=== PATIENT | male | born 1980 | race Caucasian/White ===

== ENCOUNTER → 2018-12-17 10:43 | Outpatient (CLI) | payer BC, SELFPAY ==
[2016-01-05 16:15] VITALS: BMI 40.7
[2018-12-17 13:14] LABS: Vitamin D,25 Hydroxy 16.6 ng/mL (29.95-100.01)
[2018-12-17 13:19] LABS: ALB/GLOB Ratio 1.1 RATIO (0.9-2.4); AST(SGOT) 33 U/L (15-37); Alanine Aminotransfer ALT/SGPT 73 U/L (16-61); Albumin, Serum 3.6 g/dL (3.2-5.0); Alkaline Phosphatase 51 U/L (45-117); Anion Gap 10 (5-15); BUN 14 mg/dL (7-18); BUN/Creat Ratio 16.1 RATIO (10-20); Calcium,Total 8.6 mg/dL (8.5-10.1); Chloride 105 mmol/L (98-107); Cholesterol 235 mg/dL (200); Creatinine, Serum 0.87 mg/dL (0.70-1.30); EST Glomerular Filtration Rate 103 mL/min (>60); Est Glom Filt Rate - Afr Amer 125 mL/min (>60); Globulin 3.4 g/dL (2.2-4.2); Glucose 90 mg/dL (74-106); High Density Lipoprotein 48 mg/dL; Potassium 4.3 mmol/L (3.5-5.1); Sodium Level 140 mmol/L (136-145); Triglycerides 141 mg/dL; Very Low Density Lipoprotein 28 mg/dL (5-40)
== END ==
PROVIDERS: Family Provider Family Medicine; PCP Family Medicine; Visit Provider Family Medicine
DX: E55.9 Vitamin D deficiency, unspecified (principal); R73.01 Impaired fasting glucose
CPT/HCPCS: 36415; 80053; 80061; 82306

== ENCOUNTER → 2020-02-25 08:02 | Outpatient (CLI) | payer BC, SELFPAY ==
[2016-01-05 16:15] VITALS: BMI 40.7
[2020-02-25 09:21] LABS: ALB/GLOB Ratio 0.9 RATIO (0.9-2.4); AST(SGOT) 40 U/L (15-37); Alanine Aminotransfer ALT/SGPT 71 U/L (16-61); Albumin, Serum 3.6 g/dL (3.2-5.0); Alkaline Phosphatase 54 U/L (45-117); Anion Gap 8 (5-15); BUN 22 mg/dL (7-18); BUN/Creat Ratio 22.2 RATIO (10-20); Calcium,Total 9.2 mg/dL (8.5-10.1); Chloride 108 mmol/L (98-107); Cholesterol 227 mg/dL (200); Creatinine, Serum 0.99 mg/dL (0.70-1.30); EST Glomerular Filtration Rate 88 mL/min (>60); Est Glom Filt Rate - Afr Amer 107 mL/min (>60); Globulin 3.9 g/dL (2.2-4.2); Glucose 115 mg/dL (74-106); High Density Lipoprotein 34 mg/dL; Protein, Total 7.5 g/dL (6.4-8.2); Sodium Level 142 mmol/L (136-145); Triglycerides 219 mg/dL; Very Low Density Lipoprotein 44 mg/dL (5-40)
[2020-02-27 08:52] LABS: Vitamin D,25 Hydroxy 23.9 ng/mL
== END ==
PROVIDERS: PCP Family Medicine; Referring Provider Family Medicine; Visit Provider Family Medicine
DX: E55.9 Vitamin D deficiency, unspecified (principal); R73.01 Impaired fasting glucose; R53.83 Other fatigue
CPT/HCPCS: 36415; 80053; 80061; 82306; 84403

== ENCOUNTER → 2020-05-21 15:50 | Outpatient (CLI) | payer BC, SELFPAY ==
[2016-01-05 16:15] VITALS: BMI 40.7
[2020-05-21 17:40] LABS: Anion Gap 5 (5-15); BUN 24 mg/dL (7-18); BUN/Creat Ratio 24.2 RATIO (10-20); Calcium,Total 9.4 mg/dL (8.5-10.1); Chloride 106 mmol/L (98-107); Creatinine, Serum 0.99 mg/dL (0.70-1.30); EST Glomerular Filtration Rate 88 mL/min (>60); Est Glom Filt Rate - Afr Amer 106 mL/min (>60); Glucose 107 mg/dL (74-106); Potassium 4.2 mmol/L (3.5-5.1); Sodium Level 138 mmol/L (136-145)
[2020-05-23 14:05] LABS: Vitamin B12 446 pg/mL (211-911); Vitamin D,25 Hydroxy 26.1 ng/mL
[2020-05-26 12:07] LABS: Testosterone, Free 4.61 ng/dL (5.00-21.00)
[2020-05-27 04:47] LABS: Testosterone, % Free 2.44 % (1.50-4.20); Testosterone, Total 189 ng/dL (264-916)
== END ==
PROVIDERS: PCP Family Medicine; Referring Provider Family Medicine; Visit Provider Family Medicine
DX: Z00.00 Encounter for general adult medical examination without abnormal findings (principal); E55.9 Vitamin D deficiency, unspecified; R53.83 Other fatigue; R73.01 Impaired fasting glucose
CPT/HCPCS: 36415; 80048; 82306; 82533; 82607; 84402; 84403

== ENCOUNTER → 2020-06-22 13:47 | Outpatient (CLI) | payer BC, SELFPAY ==
[2020-07-01 13:12] LABS: Testosterone Free 5.3 pg/mL (6.8-21.5)
== END ==
PROVIDERS: PCP Family Medicine; Referring Provider Family Medicine; Visit Provider Family Medicine
DX: R79.89 Other specified abnormal findings of blood chemistry (principal)
CPT/HCPCS: 36415; 84402; 84403

== ENCOUNTER → 2020-07-26 15:06 | Outpatient (CLI) | payer BC, SELFPAY ==
[2020-08-01 14:08] LABS: Testosterone, Free 27.15 ng/dL (5.00-21.00)
[2020-08-01 14:23] LABS: Testosterone, Total 554 ng/dL (264-916)
== END ==
PROVIDERS: PCP Family Medicine; Referring Provider Family Medicine; Visit Provider Family Medicine
DX: R79.89 Other specified abnormal findings of blood chemistry (principal)
CPT/HCPCS: 36415; 84402; 84403

== ENCOUNTER → 2020-09-21 09:51 | Outpatient (CLI) | payer BC, SELFPAY ==
[2016-01-05 16:15] VITALS: BMI 40.7
[2020-09-21 13:54] LABS: AST(SGOT) 61 U/L (15-37); Alanine Aminotransfer ALT/SGPT 81 U/L (16-61); Albumin, Serum 3.7 g/dL (3.2-5.0); Alkaline Phosphatase 60 U/L (45-117); BUN 16 mg/dL (7-18); Calcium,Total 9.2 mg/dL (8.5-10.1); Cholesterol 232 mg/dL (200); Creatinine, Serum 0.94 mg/dL (0.70-1.30); EST Glomerular Filtration Rate 93 mL/min (>60); Est Glom Filt Rate - Afr Amer 113 mL/min (>60); Globulin 3.6 g/dL (2.2-4.2); Glucose 101 mg/dL (74-106); Protein, Total 7.3 g/dL (6.4-8.2); Triglycerides 128 mg/dL
[2020-09-21 13:55] LABS: Anion Gap 6 (5-15); Chloride 105 mmol/L (98-107); High Density Lipoprotein 38 mg/dL; PSA,Total - Annual Screen 0.69 ng/mL (0.00-4.00); Potassium 4.5 mmol/L (3.5-5.1); Sodium Level 139 mmol/L (136-145); Very Low Density Lipoprotein 26 mg/dL (5-40)
== END ==
PROVIDERS: PCP Family Medicine; Visit Provider Family Medicine
DX: R79.89 Other specified abnormal findings of blood chemistry (principal)
CPT/HCPCS: 36415; 80053; 80061; 84153; 84403; G0103

== ENCOUNTER → 2020-11-15 09:02 | Outpatient (CLI) | payer BC, SELFPAY ==
[2016-01-05 16:15] VITALS: BMI 40.7
== END ==
PROVIDERS: PCP Family Medicine; Referring Provider Family Medicine; Visit Provider Family Medicine
DX: R79.89 Other specified abnormal findings of blood chemistry (principal)
CPT/HCPCS: 36415; 84403

== ENCOUNTER → 2021-05-22 10:54 | Outpatient (CLI) | payer BC, SELFPAY ==
[2016-01-05 16:15] VITALS: BMI 40.7
== END ==
PROVIDERS: PCP Family Medicine; Visit Provider Family Medicine
DX: Z00.00 Encounter for general adult medical examination without abnormal findings (principal)

== ENCOUNTER → 2021-08-03 09:32 | Outpatient (CLI) | payer BC, SELFPAY ==
[2021-08-03 10:25] LABS: ALB/GLOB Ratio 0.8 RATIO (0.9-2.4); AST(SGOT) 81 U/L (15-37); Alanine Aminotransfer ALT/SGPT 136 U/L (16-61); Albumin, Serum 3.3 g/dL (3.2-5.0); Alkaline Phosphatase 64 U/L (45-117); Anion Gap 8 (5-15); BUN 17 mg/dL (7-18); BUN/Creat Ratio 18.8 RATIO (10-20); Calcium,Total 8.9 mg/dL (8.5-10.1); Chloride 104 mmol/L (98-107); Cholesterol 203 mg/dL (200); EST Glomerular Filtration Rate 97 mL/min (>60); Est Glom Filt Rate - Afr Amer 118 mL/min (>60); Globulin 4.4 g/dL (2.2-4.2); Glucose 122 mg/dL (74-106); High Density Lipoprotein 33 mg/dL; Potassium 4.4 mmol/L (3.5-5.1); Protein, Total 7.7 g/dL (6.4-8.2); Sodium Level 139 mmol/L (136-145); Triglycerides 194 mg/dL; Very Low Density Lipoprotein 39 mg/dL (5-40)
== END ==
PROVIDERS: PCP Family Medicine; Referring Provider Family Medicine; Visit Provider Family Medicine
DX: E66.01 Morbid (severe) obesity due to excess calories (principal); E55.9 Vitamin D deficiency, unspecified; R79.89 Other specified abnormal findings of blood chemistry
CPT/HCPCS: 36415; 80053; 80061; 82306; 84403

== ENCOUNTER → 2022-04-30 | Outpatient (CLI) | payer BC, SELFPAY ==
[2022-04-30 10:06] LABS: AST(SGOT) 28 U/L (15-37); Alanine Aminotransfer ALT/SGPT 57 U/L (16-61); Albumin, Serum 3.7 g/dL (3.2-5.0); Alkaline Phosphatase 58 U/L (45-117); Anion Gap 6 (5-15); BUN 22 mg/dL (7-18); BUN/Creat Ratio 23.2 RATIO (10-20); Calcium,Total 9.3 mg/dL (8.5-10.1); Chloride 105 mmol/L (98-107); Cholesterol 254 mg/dL (200); Creatinine, Serum 0.95 mg/dL (0.70-1.30); EST Glomerular Filtration Rate 92 mL/min (>60); Est Glom Filt Rate - Afr Amer 111 mL/min (>60); Globulin 3.8 g/dL (2.2-4.2); Glucose 131 mg/dL (74-106); High Density Lipoprotein 47 mg/dL; Potassium 4.3 mmol/L (3.5-5.1); Protein, Total 7.5 g/dL (6.4-8.2); Sodium Level 139 mmol/L (136-145); Triglycerides 140 mg/dL; Very Low Density Lipoprotein 28 mg/dL (5-40)
== END | disposition home or self-care (01) ==
LOC: MFPLAB 09:09
PROVIDERS: PCP Family Medicine; Visit Provider Family Medicine
DX: E11.9 Type 2 diabetes mellitus without complications (principal); R79.89 Other specified abnormal findings of blood chemistry
CPT/HCPCS: 36415; 80053; 80061; 84403

== ENCOUNTER → 2022-09-08 | Outpatient (CLI) | payer OTHER, SELFPAY ==
[2022-09-08 11:07] LABS: Vitamin D,25 Hydroxy 35.8 ng/mL
[2022-09-08 11:12] LABS: ALB/GLOB Ratio 0.9 RATIO (0.9-2.4); AST(SGOT) 25 U/L (15-37); Alanine Aminotransfer ALT/SGPT 68 U/L (16-61); Albumin, Serum 3.6 g/dL (3.2-5.0); Alkaline Phosphatase 64 U/L (45-117); Anion Gap 7 (5-15); BUN 18 mg/dL (7-18); BUN/Creat Ratio 18.6 RATIO (10-20); Calcium,Total 9.1 mg/dL (8.5-10.1); Chloride 106 mmol/L (98-107); Cholesterol 173 mg/dL (200); Creatinine, Serum 0.97 mg/dL (0.70-1.30); EST Glomerular Filtration Rate 90 mL/min (>60); Est Glom Filt Rate - Afr Amer 109 mL/min (>60); Glucose 113 mg/dL (74-106); High Density Lipoprotein 54 mg/dL; Potassium 4.3 mmol/L (3.5-5.1); Protein, Total 7.6 g/dL (6.4-8.2); Sodium Level 139 mmol/L (136-145); Thyroid Stim Hormone (TSH) 1.24 uIU/mL (0.358-3.74); Triglycerides 125 mg/dL; Very Low Density Lipoprotein 25 mg/dL (5-40)
== END | disposition home or self-care (01) ==
LOC: LAB 09:24
PROVIDERS: PCP Family Medicine; Referring Provider Family Medicine; Visit Provider Family Medicine
DX: E55.9 Vitamin D deficiency, unspecified (principal); E11.9 Type 2 diabetes mellitus without complications
CPT/HCPCS: 36415; 80053; 80061; 82306; 84403; 84443

== ENCOUNTER → 2024-08-20 | Outpatient (CLI) | payer OTHER, SELFPAY ==
[2024-08-20 10:04] LABS: ALB/GLOB Ratio 0.9 RATIO (0.9-2.4); AST(SGOT) 47 U/L (15-37); Alanine Aminotransfer ALT/SGPT 71 U/L (16-61); Albumin, Serum 3.6 g/dL (3.2-5.0); Alkaline Phosphatase 66 U/L (45-117); Anion Gap 5 (5-15); BUN 22 mg/dL (7-18); BUN/Creat Ratio 21.8 RATIO (10-20); Calcium,Total 9.4 mg/dL (8.5-10.1); Chloride 108 mmol/L (98-107); Cholesterol 160 mg/dL (200); Creatinine, Serum 1.01 mg/dL (0.70-1.30); EST Glomerular Filtration Rate 84 mL/min (>60); Est Glom Filt Rate - Afr Amer 102 mL/min (>60); Glucose 133 mg/dL (74-106); High Density Lipoprotein 43 mg/dL; Potassium 4.6 mmol/L (3.5-5.1); Protein, Total 7.6 g/dL (6.4-8.2); Sodium Level 140 mmol/L (136-145); Triglycerides 139 mg/dL; Very Low Density Lipoprotein 28 mg/dL (5-40)
[2024-08-22 10:10] LABS: Vitamin D,25 Hydroxy 36.6 ng/mL
== END | disposition home or self-care (01) ==
LOC: LAB 09:04
PROVIDERS: PCP Family Medicine; Referring Provider Family Medicine; Visit Provider Family Medicine
DX: E11.9 Type 2 diabetes mellitus without complications (principal); E55.9 Vitamin D deficiency, unspecified
CPT/HCPCS: 36415; 80053; 80061; 82306; 84403; 84443

== ENCOUNTER → 2025-08-19 | Outpatient (CLI) | payer BC, SELFPAY ==
--- OUTSIDE RECORDS SUMMARY | 2025-08-19 07:00 | XMS RPT_ITS | CCD ---
Author Organization [facility] Inform ion Partnership [facility] Care Team Providers Care Hospice Manager Name Role Phone Gurmeet Benson Referring Unavailable Gurmeet Benson Attending Unavailable Gurmeet Benson Primary Care Unavailable Medications Current Medications Medication Drug Class(es) Dates Sig (Normalized) Sig (Original) ergocalciferol 1.25 mg oral capsule (2 sources) Provitamin D2 Compound Start: 01-05-2016 take 1 capsule by mouth every week Ergocalciferol (Vitamin D2) (Vitamin D) 50,000 UNIT capsule Active 75741 UNIT PO Q7D January 05, 2016 12:00am Problems Problem Classification Problem Date Documented Da te Episodic/Chronic Diabetes mellitus without complication (1 source) Type 2 diabetes mellitus without complications; Translations: [Type 2 diabetes mellitus without complications] Onset: 09-12-2024 Chronic Results Test Name Value Interpretation Reference Range Facility Testosterone, Serum Totalon 08-22-2024 Testosterone [Mass/Vol] 191.53 ng/dL Normal [facility] Comment on above: Order Comment: Order Date: 08/15/24 Order Info: [id number] - VITD25 Order Info: [id number] - TIERRA Result Comment: CENT RAL 90% REFERENCE RANGES MALE AGE <50 197.44 - 669.58 ng/dL MALE AGE > or = 50 187.72 - 684.19 ng/dL FEMALE AGE <50 8.38 - 35.01 ng/dL FEMALE AGE > or = 50 <7.00 - 35.92 ng/dL Effective as of 05/28/21 Performed By: #### L 500.4050, L509.3000, L501.9520, L500.4100 #### [facility] [address] [place], [address] Vitamin D,25 Hydroxyon 08-22 Vitamin D 25-OH 36.6 ng/mL Normal [facility] Comment on above: Order Comment: Order Date: 08/15/24 Order Info: [id number] - VITD25 Order Info: [id number] - TIERRA Result Comment: Linda min D 25(OH) Status Range Deficiency <20 ng/mL (50nmol/L) Insufficiency 20 - 30 ng/mL (50 - 75 nmol/L) Sufficiency 30 - 100 ng/mL (75 - 250 nmol/L) Toxicity >100 ng/mL (>250 nmol/L) Performed By: #### L 506.1000 #### [facility] [address] [place], [address] Comprehensive Metabolic Prof ilon 08-20-2024 Albumin [Mass/Vol] 3.6 g/dL Normal 3.2-5.0 [facility] Comment on above: Order Comment: Order Date: 08/15/24 Order Info: [id number] - CMP Order Info: [id number] - LIPID Order Info: [id number] - TSH Performed By: #### L 500.4050, L509.3000, L501.9520, L500.4100 #### [facility] [address] [place], [address] Albumin/Globulin [Mass ratio] 0.9 {ratio} Normal 0.9-2.4 [facility] Comment on above: Order Comment: Order Date: 08/15/24 Order Info: [id number] - CMP Order Info: [id number] - LIPID Order Info: [id number] - TSH Performed By: #### L 500.4050, L509.3000, L501.9520, L500.4100 #### [facility] [address] [place], [address] ALK P 66 U/L Normal 45-117 [facility] Comment on above: Order Comment: Order Date: 08/15/24 Order Info: [id number] - CMP Order Info: [id number] - LIPID Order Info: [id number] - TSH Performed By: #### L 500.4050, L509.3000, L501.9520, L500.4100 #### [facility] [address] [place], [address] ALT [Catalytic activity/Vol] 71 U/L High 16-61 [facility] Comment on above: Order Comment: Order Date: 08/15/24 Order Info: [id number] - CMP Order Info: [id number] - LIPID Order Info: 3 - TSH Performed By: #### L 500.4050, L509.3000, L501.9520, L500.4100 #### [facility] [address] [place], [address] AST [Catalytic activity/Vol] 47 U/L High 15-37 [facility] Comment on above: Order Comment: Order Date: 08/15/24 Order Info: [id number]- - CMP Order Info: - LIPID Order Info: [id number] - TSH Performed By: #### L 500.4050, L509.3000, L501.9520, L500.4100 #### [facility] [address] [place], [address] Bilirubin [Mass/Vol] 0.50 mg/dL Normal 0.20-1.00 [facility] Comment on above: Order Comment: Order Date: 08/15/24 Order Info: [id number] - CMP Order Info: - LIPID Order Info: 3 - TSH Result Comment: For patients on eltrombopag therapy, use of Dimension [place] TBIL is not recommended. Performed By: #### L 500.4050, L509.3000, L501.9520, L500.4100 #### [facility] [address] [place], [address] BUN/CRE 21.8 RATIO High 10-20 [facility] Comment on above: Order Comment: Order Date: 08/15/24 Order Info: [id number] - CMP Order Info: [id number] - LIPID Order Info: 3 - TSH Performed By: #### L 500.4050, L509.3000, L501.9520, L500.4100 #### [facility] [address] [place], [address] CA,Total 9.4 mg/dL Normal 8.5-10.1 [facility] Comment on above: Order Comment: Order Date: 08/15/24 Order Info: [id number]- - CMP Order Info: - LIPID Order Info: 3 - TSH Performed By: #### L 500.4050, L509.3000, L501.9520, L500.4100 #### [facility] [address] [place], [address] Chloride [Moles/Vol] 108 mmol/L High 98-107 [facility] Comment on above: Order Comment: Order Date: 08/15/24 Order Info: [id number] - CMP Order Info: - LIPID Order Info: [id number] - TSH Performed By: #### L 500.4050, L509.3000, L501.9520, L500.4100 #### [facility] [address] [place], [address] CO2 [Moles/Vol] 27.0 mmol/L Normal 21.0-32.0 [facility] Comment on above: Order Comment: Order Date: 08/15/24 Order Info: [id number] - CMP Order Info: - LIPID Order Info: 3 - TSH Performed By: #### L 500.4050, L509.3000, L501.9520, L500.4100 #### [facility] [address] [place], [address] Creatinine [Mass/Vol] 1.01 mg/dL Normal 0.70-1.30 [facility] Comment on above: Order Comment: Order Date: 08/15/24 Order Info: [id number]- - CMP Order Info: - LIPID Order Info: 3 - TSH Result Comment: The validity of the calculated GFR GFRAA in patients over 70 years has not been determined. Clinical correlation is essential. Performed By: #### L 500.4050, L509.3000, L501.9520, L500.4100 #### [facility] [address] [place], [address] EST GFR - AA 102 mL/min Normal >60 [facility] Comment on above: Order Comment: Order Date: 08/15/24 Order Info: [id number] - CMP Order Info: [id number] - LIPID Order Info: [id number] - TSH Result Comment: Afri can Swedish GFR Calc Performed By: #### L 500.4050, L509.3000, L501.9520, L500.4100 #### [facility] [address] [place], [address] GAP 5 Normal 5-15 [facility] Comment on above: Order Comment: Order Date: 08/15/24 Order Info: [id number]- - CMP Order Info: [id number] - LIPID Order Info: 3 - TSH Performed By: #### L 500.4050, L509.3000, L501.9520, L500.4100 #### [facility] [address] [place], [address] GFR/1.73 sq M.predicted among non-blacks MDRD (S/P/Bld) [Vol rate/Area] 84 mL/min/{1.73_m2} Normal >60 [facility] Comment on above: Order Comment: Order Date: 08/15/24 Order Info: [id number] - CMP Order Info: [id number] - LIPID Order Info: [id number] - TSH Result Comment: Non- GFR Calc Performed By: #### L 500.4050, L509.3000, L501.9520, L500.4100 #### [facility] [address] [place], [address] Globulin (S) [Mass/Vol] 4.0 g/dL Normal 2.2-4.2 [facility] Comment on above: Order Comment: Order Date: 08/15/24 Order Info: [id number] - CMP Order Info: - LIPID Order Info: [id number] - TSH Performed By: #### L 500.4050, L509.3000, L501.9520, L500.4100 #### [facility] [address] [place], [address] Glucose [Mass/Vol] 133 mg/dL High 74-106 [facility] Comment on above: Order Comment: Order Date: 08/15/24 Order Info: [id number] - CMP Order Info: - LIPID Order Info: [id number] - TSH Result Comment: Fast ing Glucose result greater than or equal to 126 mg/dL suggests DIABETES MELLITUS per A.D.A. criteria. Performed By: #### L 500.4050, L509.3000, L501.9520, L500.4100 #### [facility] [address] [place], [address] Potassium [Moles/Vol] 4.6 mmol/L Normal 3.5-5.1 [facility] Comment on above: Order Comment: Order Date: 08/15/24 Order Info: [id number] - CMP Order Info: - LIPID Order Info: [id number] - TSH Performed By: #### L 500.4050, L509.3000, L501.9520, L500.4100 #### [facility] [address] [place], [address] Sodium [Moles/Vol] 140 mmol/L Normal 136-145 [facility] Comment on above: Order Comment: Order Date: 08/15/24 Order Info: [id number] - CMP Order Info: - LIPID Order Info: 3 - TSH Performed By: #### L 500.4050, L509.3000, L501.9520, L500.4100 #### [facility] [address] [place], [address] T PROT 7.6 g/dL Normal 6.4-8.2 [facility] Comment on above: Order Comment: Order Date: 08/15/24 Order Info: [id number] - CMP Order Info: - LIPID Order Info: [id number] - TSH Performed By: #### L 500.4050, L509.3000, L501.9520, L500.4100 #### [facility] [address] [place], [address] Urea nitrogen [Mass/Vol] 22 mg/dL High 7-18 [facility] Comment on above: Order Comment: Order Date: 08/15/24 Order Info: [id number] - CMP Order Info: - LIPID Order Info: [id number] - TSH Performed By: #### L 500.4050, L509.3000, L501.9520, L500.4100 #### [facility] [address] [place], [address] Lipid Profileon 08-20-2024 Cholesterol [Mass/Vol] 160 mg/dL Normal 200 [facility] Comment on above: Order Comment: Order Date: 08/15/24 Order Info: [id number] - CMP Order Info: - LIPID Order Info: [id number] - TSH Result Comment: <200 mg/dL Desirable 200-240 mg/dL Borderline >240 mg/dL High Risk Performed By: #### L 500.4050, L509.3000, L501.9520, L500.4100 #### [facility] [address] [place], [address] Cholesterol in HDL [Mass/Vol] 43 mg/dL Normal [facility] Comment on above: Order Comment: Order Date: 08/15/24 Order Info: [id number] - CMP Order Info: - LIPID Order Info: [id number] - TSH Result Comment: The drugs N-Acetylcysteine and Metamizole may falsely depress this assay. Reference Range HDL <40 mg/dL Low HDL Cholesterol HDL >or= 60 mg/dL High HDL Cholesterol Performed By: #### L 500.4050, L509.3000, L501.9520, L500.4100 #### [facility] [address] [place], [address] Cholesterol in LDL [Mass/Vol] 89 mg/dL Normal 0-130 [facility] Comment on above: Order Comment: Order Date: 08/15/24 Order Info: [id number] - CMP Order Info: [id number] - LIPID Order Info: 6-3 - TSH Performed By: #### L 500.4050, L509.3000, L501.9520, L500.4100 #### [facility] [address] [place], [address] Cholesterol in VLDL [Mass/Vol] 28 mg/dL Normal 5-40 [facility] Comment on above: Order Comment: Order Date: 08/15/24 Order Info: [id number] - CMP Order Info: [id number] - LIPID Order Info: 6-3 - TSH Performed By: #### L 500.4050, L509.3000, L501.9520, L500.4100 #### [facility] [address] [place], [address] Triglyceride [Mass/Vol] 139 mg/dL Normal [facility] Comment on above: Order Comment: Order Date: 08/15/24 Order Info: [id number] - CMP Order Info: [id number] - LIPID Order Info: [id number] - TSH Result Comment: The drugs N-Acetylcysteine and Metamizole may falsely depress this assay. Serum Triglycerides Reference Interval Normal <150 mg/dL Borderline high 150 - 199 mg/dL High 200 - 499 mg/dL Very High > or = 500 mg/dL Performed By: #### L 500.4050, L509.3000, L501.9520, L500.4100 #### [facility] [address] [place], [address] Thyroid Stim Hormone (TSH)on 08-20-2024 TSH 1.100 uIU/mL Normal 0.358-3.740 [facility] Comment on above: Order Comment: Order Date: 08/15/24 Order Info: [id number] - CMP Order Info: [id number] - LIPID Order Info: [id number] - TSH Performed By: #### L 500.4050, L509.3000, L501.9520, L500.4100 #### [facility] [address] [place], [address] Basophil percentageon 2021 Bilirubin [Mass/Vol] 0.40 mg/dL 0.20-1.00 [facility] Work Phone: Comment on above: For patients on eltr ombopag therapy, use of Dimension [place] TBIL is not recommended. Chloride [Moles/Vol] 106 mmol/L 98-107 [facility] Work Phone: Cholesterol [Mass/Vol] 173 mg/dL <200 [facility] Work Phone: Comment on above: <200 mg/dL Desirable 200-240 mg/dL Borderline >240 mg/dL High Risk Glucose [Mass/Vol] 113 mg/dL 74-106 [facility] Work Phone: Comment on above: Fasting Glucose resu lt from 100 to 125 mg/dL suggests IMPAIRED HOMEOSTASIS per A.D.A. criteria. Potassium [Moles/Vol] 4.3 mmol/L 3.5-5.1 [facility] Work Phone: Protein [Mass/Vol] 7.6 g/dL 6.4-8.2 [facility] Work Phone: Sodium [Moles/Vol] 139 mmol/L 136-145 [facility] Work Phone: Testosterone [Mass/Vol] ng/dL [facility] Work Phone: Comment on above: CENTRAL 90% REFERENC E RANGES MALE AGE <50 197.44 - 669.58 ng/dL MALE AGE > or = 50 187.72 - 684.19 ng/dL FEMALE AGE <50 8.38 - 35.01 ng/dL FEMALE AGE > or = 50 <7.00 - 35.92 ng/dL Effective as of 05/28/21 Triglyceride [Mass/Vol] 125 mg/dL <199 [facility] Work Phone: Comment on above: The drugs N-Acetylcy steine and Metamizole may falsely depress this assay.Serum Triglycerides Reference Interval Normal <150 mg/dL Borderline high 150 - 199 mg/dL High 200 - 499 mg/dL Very High > or = 500 mg/dL Laboratory - Chemistry and C hemistry - challengeon 09-08-2022 ALP [Catalytic activity/Vol] 64 U/L 45-117 [facility] Work Phone: ALT [Catalytic activity/Vol] 68 U/L 16-61 [facility] Work Phone: CO2 [Moles/Vol] 26.0 mmol/L 21.0-32.0 [facility] Work Phone: Globulin (S) [Mass/Vol] 4.0 g/dL 2.2-4.2 [facility] Work Phone: Urea nitrogen/Creatinine [Mass ratio] 18.6 mg/mg 10-20 [facility] Work Phone: No Panel Informationon 09-08 Estimated GFR (MDRD) Amer 109 mL/min >60 [facility] Work Phone: Comment on above: GFR Calc Estimated GFR (MDRD) Non-Af Amer 90 mL/min >60 [facility] Work Phone: Comment on above: Non- GFR Calc Thyroid Stimulating Hormone (TSH) 1.24 uIU/mL 0.358-3.74 [facility] Work Phone: Vitamin D 25-Hydroxy 35.8 ng/mL [facility] Work Phone: Comment on above: Vitamin D 25(OH) Sta tus Range Deficiency <20 ng/mL (50nmol/L) Insufficiency 20 - 30 ng/mL (50 - 75 nmol/L) Sufficiency 30 - 100 ng/mL (75 - 250 nmol/L) Toxicity >100 ng/mL (>250 nmol/L) Serum or plasma albumin ghada urement (mass/volume)on 09-08-2022 Albumin [Mass/Vol] 3.6 g/dL 3.2-5.0 [facility] Work Phone: Serum or plasma albumin/glob ulin mass ratioon 09-08-2022 Albumin/Globulin [Mass ratio] 0.9 {ratio} 0.9-2.4 [facility] Work Phone: Serum or plasma calcium ghada urement (mass/volume)on 09-08-2022 Calcium [Mass/Vol] 9.1 mg/dL 8.5-10.1 [facility] Work Phone: Serum or plasma cholesterol in HDL measurement (mass/volume)on 09-08-2022 Cholesterol in HDL [Mass/Vol] 54 mg/dL >40 [facility] Work Phone: Comment on above: The drugs N-Acetylcy steine and Metamizole may falsely depress this assay. Reference Range HDL <40 mg/dL Low HDL Cholesterol HDL >or= 60 mg/dL High HDL Cholesterol Serum or plasma cholesterol in VLDL measurement (mass/volume)on 09-08-2022 Cholesterol in VLDL [Mass/Vol] 25 mg/dL 5-40 [facility] Work Phone: Serum or plasma creatinine m easurement (mass/volume)on 09-08-2022 Creatinine [Mass/Vol] 0.97 mg/dL 0.70-1.30 [facility] Work Phone: Comment on above: The validity of the calculated GFR & GFRAA in patients over 70 years has not been determined. Clinical correlation is essential. Serum or plasma low density lipoprotein (LDL) cholesterol measurement (mass/volume)on 09-08-2022 Cholesterol in LDL [Mass/Vol] 94 mg/dL 0-130 [facility] Work Phone: Serum or plasma urea nitroge n measurement (mass/volume)on 09-08-2022 Urea nitrogen [Mass/Vol] 18 mg/dL 7-18 [facility] Work Phone: Thin prep Papanicolaou smear with manual screeningon 09-08-2022 Thin prep Papanicolaou smear with manual screening 25 U/L 15-37 [facility] Work Phone: Thin prep Papanicolaou smear with manual screening 7 5-15 [facility] Work Phone: Basophil percentageon 2021 Bilirubin [Mass/Vol] 0.70 mg/dL 0.20-1.00 [facility] Work Phone: Comment on above: For patients on eltr ombopag therapy, use of Dimension [place] TBIL is not recommended. Chloride [Moles/Vol] 105 mmol/L 98-107 [facility] Work Phone: Cholesterol [Mass/Vol] 254 mg/dL <200 [facility] Work Phone: Comment on above: <200 mg/dL Desirable 200-240 mg/dL Borderline >240 mg/dL High Risk Glucose [Mass/Vol] 131 mg/dL 74-106 [facility] Work Phone: Comment on above: Fasting Glucose resu lt greater than or equal to 126 mg/dL suggests DIABETES MELLITUS per A.D.A. criteria. Potassium [Moles/Vol] 4.3 mmol/L 3.5-5.1 [facility] Work Phone: Protein [Mass/Vol] 7.5 g/dL 6.4-8.2 [facility] Work Phone: Sodium [Moles/Vol] 139 mmol/L 136-145 [facility] Work Phone: Testosterone [Mass/Vol] 340.99 ng/dL [facility] Work Phone: Comment on above: CENTRAL 90% REFERENC E RANGES MALE AGE <50 197.44 - 669.58 ng/dL MALE AGE > or = 50 187.72 - 684.19 ng/dL FEMALE AGE <50 8.38 - 35.01 ng/dL FEMALE AGE > or = 50 <7.00 - 35.92 ng/dL Effective as of 05/28/21 Triglyceride [Mass/Vol] 140 mg/dL <199 [facility] Work Phone: Comment on above: The drugs N-Acetylcy steine and Metamizole may falsely depress this assay.Serum Triglycerides Reference Interval Normal <150 mg/dL Borderline high 150 - 199 mg/dL High 200 - 499 mg/dL Very High > or = 500 mg/dL Laboratory - Chemistry and C hemistry - challengeon 04-30-2022 ALP [Catalytic activity/Vol] 58 U/L 45-117 [facility] Work Phone: ALT [Catalytic activity/Vol] 57 U/L 16-61 [facility] Work Phone: CO2 [Moles/Vol] 28.0 mmol/L 21.0-32.0 [facility] Work Phone: Globulin (S) [Mass/Vol] 3.8 g/dL 2.2-4.2 [facility] Work Phone: Urea nitrogen/Creatinine [Mass ratio] 23.2 mg/mg 10-20 [facility] Work Phone: No Panel Informationon 04-30 Estimated GFR (MDRD) Amer 111 mL/min >60 [facility] Work Phone: Comment on above: GFR Calc Estimated GFR (MDRD) Non-Af Amer 92 mL/min >60 [facility] Work Phone: Comment on above: Non- GFR Calc Serum or plasma albumin ghada urement (mass/volume)on 04-30-2022 Albumin [Mass/Vol] 3.7 g/dL 3.2-5.0 [facility] Work Phone: Serum or plasma albumin/glob ulin mass ratioon 04-30-2022 Albumin/Globulin [Mass ratio] 1.0 {ratio} 0.9-2.4 [facility] Work Phone: Serum or plasma calcium ghada urement (mass/volume)on 04-30-2022 Calcium [Mass/Vol] 9.3 mg/dL 8.5-10.1 [facility] Work Phone: Serum or plasma cholesterol in HDL measurement (mass/volume)on 04-30-2022 Cholesterol in HDL [Mass/Vol] 47 mg/dL >40 [facility] Work Phone: Comment on above: The drugs N-Acetylcy steine and Metamizole may falsely depress this assay. Reference Range HDL <40 mg/dL Low HDL Cholesterol HDL >or= 60 mg/dL High HDL Cholesterol Serum or plasma cholesterol in VLDL measurement (mass/volume)on 04-30-2022 Cholesterol in VLDL [Mass/Vol] 28 mg/dL 5-40 [facility] Work Phone: Serum or plasma creatinine m easurement (mass/volume)on 04-30-2022 Creatinine [Mass/Vol] 0.95 mg/dL 0.70-1.30 [facility] Work Phone: Comment on above: The validity of the calculated GFR & GFRAA in patients over 70 years has not been determined. Clinical correlation is essential. Serum or plasma low density lipoprotein (LDL) cholesterol measurement (mass/volume)on 04-30-2022 Cholesterol in LDL [Mass/Vol] 179 mg/dL 0-130 [facility] Work Phone: Serum or plasma urea nitroge n measurement (mass/volume)on 04-30-2022 Urea nitrogen [Mass/Vol] 22 mg/dL 7-18 [facility] Work Phone: Thin prep Papanicolaou smear with manual screeningon 04-30-2022 Thin prep Papanicolaou smear with manual screening 28 U/L 15-37 [facility] Work Phone: Thin prep Papanicolaou smear with manual screening 6 5-15 [facility] Work Phone: Marlene 05-10-2019 CNOV Office Visit (UCWSTR ) KOREY BOOGIE ([id number]) 1980 M Date Time Provider Department 05/10/19 11:15 [facility] During your visit today, we recorded the following information about you: Temperature Pulse Respiration Blood pressure 99.2 degrees 74/minute 18/minute 128/88 Weight 160.1 kg Leena ISABELLA Silva.SCRIPT SUPERVISOR 05/10/2019 1:00 PM Signed Subjective HPI Pt presents with c/o insect bite to left stafford 3 days ago. Did not see an insect. Possible felt a sting while hiking [place] the [place]. Was exposed to poisonous plants as well. Dog was running through the [place] then jumping on pt. Pt was staying mostly on path. Area was itchy the first day. When he awoke in the am there was a patch of blisters. Today there is redness surrounding the rash/blisters. Has been applying kailey dry. Denies fever, chills, myalgias. Review of Systems Constitutional: Negative for chills and fever. Skin: Positive for itching and rash. Objective Physical Exam Constitutional: He is oriented to person, place, and time and well-developed, well-nourished, and in no distress. No distress. Neurological: He is alert and oriented to person, place, and time. Skin: Skin is warm and dry. Rash noted. Rash is maculopapular and vesicular. He is not diaphoretic. One assymetrical vesicular lesion with maculopapular lesions and mild erythema and mild induration surrounding. No open areas. No heat. Pedal pulses 2+ Cap refill 3 sec Erythema outlined with surgical pen. Wound culture obtained. BP 128/88 Pulse 74 Temp 37.3 ?C (99.2 ?F) (Tympanic) Resp 18 Wt (!) 160.1 kg (353 lb) .Patient presents with: Insect Bite: red, swollen and blistery area on left knee area x 1 day PAST MEDICAL HISTORY Diagnosis Date - Inguinal hernia left - Inguinal hernia right PAST SURGICAL HISTORY Procedure Laterality Date - OPEN FIXATN PROX END/NECK FEMUR FX 1985 ORIF femur - REPAIR ING HERNIA,5+Y/O,REDUCIBL 2004 Hernia repair, inguinal - left - REPAIR ING HERNIA,5+Y/O,REDUCIBL 3/23/9 Right ALLERGIES Patient has no known allergies. MEDICATIONS cholecalciferol, vitamin D3, (VITAMIN D3 ORAL) Take by mouth. LANSOPRAZOLE (PREVACID ORAL) Take by mouth. ESCITALOPRAM OXALATE (LEXAPRO ORAL) Take by mouth. predniSONE (DELTASONE) 20 mg tablet Take 2 tablets by mouth once daily for 5 days. Take daily with food. mupirocin (BACTROBAN) 2 % ointment Apply 1 application to affected area three times daily. loratadine (CLARITIN) 10 mg tablet Take 1 tablet by mouth once daily as needed. benzonatate (TESSALON PERLE) 100 mg capsule Take 1 capsule by mouth three times daily as needed. FAMILY HISTORY Problem Relation Age of Onset - Diabetes Mother - Hypertension Mother - Hypertension Father - Heart Father CHF - COPD Father smoker Social History Tobacco Use - Smoking status: Never Smoker - Smokeless tobacco: Never Used Substance Use Topics - Alcohol use: Yes Alcohol/week: 6.0 oz Types: 4 Cans of Beer (12oz) per week - Drug use: No ASSESSMENT/PLAN: 1. Rash - ICD9: 782.1, ICD10: R21 - PREDNISONE 20 MG TABLET - WOUND CULTURE AND GRAM STAIN - MUPIROCIN 2 % TOPICAL OINTMENT - LORATADINE 10 MG TABLET The patient is instructed to return or seek emergency treatment if symptoms become worse or with any acute change in condition. The patient verbalizes understanding and is in agreement with plan of care. Leena Silva CNP Referring Provider: SELF [[id number]] Allergies As of Date: 05/10/2019 (No Known Allergies) Date Reviewed: 05/10/2019 Reviewed by: Lucrecia Marr Ma - Fully Assessed Reason for Visit: Insect Bite [929] Cmt: red, swollen and blistery area on left knee area x 1 day Primary Visit Diagnosis:Rash [R21] Order(s):predniSONE (DELTASONE) 20 mg tabletTake 2 tablets by mouth once daily for 5 days. Take daily with food.Disp: 10 tabletRfl: 0 WOUND CULTURE AND GRAM STAIN [SQWCUL] Order #: [id number] mupirocin (BACTROBAN) 2 % ointmentApply 1 application to affected area three times daily.Disp: 30 gRfl: 0 loratadine (CLARITIN) 10 mg tabletTake 1 tablet by mouth once daily as needed.Disp: 30 tabletRfl: 2 Prescriptions as of 05/10/2019 Sig: VITAMIN D3 ORAL Take by mouth. PREVACID ORAL Take by mouth. LEXAPRO ORAL Take by mouth. PREDNISONE 20 MG TABLET Take 2 tablets by mouth once * MUPIROCIN 2 % TOPICAL OINTMENT Apply 1 application to affect* LORATADINE 10 MG TABLET Take 1 tablet by mouth once d* BENZONATATE 100 MG CAPSULE Take 1 capsule by mouth three* Patient not taking: Reported on 05/01/2018 Problem List As Of Date 05/10/2019 Noted Resolved SKIN HYPERTRO/ATROPH NOS [L91.9, L90.9] INVALID FOR* UNILAT INGUINAL HERNIA [K40.90] INVALID FOR* Varicose vein of leg [I83.90] INVALID FOR* Prescriptions ordered this encounter Disp Refills Start End PREDNISONE 20 MG TABLET 10 t* 0 05/10/2019 05/15/2019 Route: ORAL Sig: Take 2 tablets by mouth once daily for 5 days. Take daily with food. MUPIROCIN 2 % TOPICAL OINTMENT 30 g 0 05/10/2019 Route: TOPICAL Sig: Apply 1 application to affected area three times daily. LORATADINE 10 MG TABLET 30 t* 2 05/10/2019 Route: ORAL Sig: Take 1 tablet by mouth once daily as needed. Letter Text Encounter Status:Closed by LEENA SILVA CNP on 05/10/[address] [facility] PROGRESSon 05-10-2019 PROGRESS HNO ID: [id number] Author: Leena Silva Service: ? Author Type: Nurse Practitioner Type: Progress Notes Filed: 05/10/2019 1:00 PM Note Text: Subjective HPI Pt presents with c/o insect bite to left [place] 3 days ago. Did not see an insect. Possible felt a sting while hiking in [place]. Was exposed to poisonous plants as well. Dog was running through the [place] then jumping on pt. Pt was staying mostly on path. Area was itchy the first day. When he awoke in the am there was a patch of blisters. Today there is redness surrounding the rash/blisters. Has been applying kailey dry. Denies fever, chills, myalgias. Review of Systems Constitutional: Negative for chills and fever. Skin: Positive for itching and rash. Objective Physical Exam Constitutional: He is oriented to person, place, and time and well-developed, well-nourished, and in no distress. No distress. Neurological: He is alert and oriented to person, place, and time. Skin: Skin is warm and dry. Rash noted. Rash is maculopapular and vesicular. He is not diaphoretic. One assymetrical vesicular lesion with maculopapular lesions and mild erythema and mild induration surrounding. No open areas. No heat. Pedal pulses 2+ Cap refill 3 sec Erythema outlined with surgical pen. Wound culture obtained. BP 128/88 Pulse 74 Temp 37.3 ?C (99.2 ?F) (Tympanic) Resp 18 Wt (!) 160.1 kg (353 lb) .Patient presents with: Insect Bite: red, swollen and blistery area on left knee area x 1 day PAST MEDICAL HISTORY Diagnosis Date - Inguinal hernia left - Inguinal hernia right PAST SURGICAL HISTORY Procedure Laterality Date - OPEN FIXATN PROX END/NECK FEMUR FX 1985 ORIF femur - REPAIR ING HERNIA,5+Y/O,REDUCIBL 2004 Hernia repair, inguinal - left - REPAIR ING HERNIA,5+Y/O,REDUCIBL Right ALLERGIES Patient has no known allergies. MEDICATIONS cholecalciferol, vitamin D3, (VITAMIN D3 ORAL) Take by mouth. LANSOPRAZOLE (PREVACID ORAL) Take by mouth. ESCITALOPRAM OXALATE (LEXAPRO ORAL) Take by mouth. predniSONE (DELTASONE) 20 mg tablet Take 2 tablets by mouth once daily for 5 days. Take daily with food. mupirocin (BACTROBAN) 2 % ointment Apply 1 application to affected area three times daily. loratadine (CLARITIN) 10 mg tablet Take 1 tablet by mouth once daily as needed. benzonatate (TESSALON PERLE) 100 mg capsule Take 1 capsule by mouth three times daily as needed. FAMILY HISTORY Problem Relation Age of Onset - Diabetes Mother - Hypertension Mother - Hypertension Father - Heart Father CHF - COPD Father smoker Social History Tobacco Use - Smoking status: Never Smoker - Smokeless tobacco: Never Used Substance Use Topics - Alcohol use: Yes Alcohol/week: 6.0 oz Types: 4 Cans of Beer (12oz) per week - Drug use: No ASSESSMENT/PLAN: 1. Rash - ICD9: 782.1, ICD10: R21 - PREDNISONE 20 MG TABLET - WOUND CULTURE AND GRAM STAIN - MUPIROCIN 2 % TOPICAL OINTMENT - LORATADINE 10 MG TABLET The patient is instructed to return or seek emergency treatment if symptoms become worse or with any acute change in condition. The patient verbalizes understanding and is in agreement with plan of care. Leena Silva CNP [facility] Wound Culture/Stainon 2018 Wound Culture/Stain Sp. Request/Comment: - Swab Smear Result - No organisms seen No Polymorphonuclear Leukocytes Culture Result - No growth 2 days For wound culture, tissue or aspirates are superior to swab specimens. If a swab must be used, eSwab is preferred (Paz no. [id number]). [facility] Comment on above: Performed By: #### W CUL #### [facility] [address] [place], [place] [id number] CNOVon 02-07-2019 CNOV Office Visit (UCWSTR ) KOREY BOOGIE ([id number]) 1980 M Date Time Provider Department 02/07/19 12:15 PM MICHELLE BROWN ([facility]) [facility] During your visit today, we recorded the following information about you: Temperature Pulse Respiration Blood pressure 99.6 degrees 67/minute 14/minute 138/84 Weight 157.7 kg Michelle Brown APRN.CNP 02/07/2019 1:43 PM Signed Subjective HPI Korey Irwin Boogie is a 38 year old male who presents with left eye drainage and eye lid swollen. He had some crusting on the eye this morning. He states the eye itches. Review of Systems Constitutional: Negative. Negative for fever. HENT: Negative for congestion and sore throat. Eyes: Positive for discharge. Respiratory: Negative. Negative for cough. BP 138/84 Pulse 67 Temp 37.6 ?C (99.6 ?F) (Tympanic) Resp 14 Wt (!) 157.7 kg (347 lb 9.6 oz) PAST MEDICAL HISTORY Diagnosis Date - Inguinal hernia left - Inguinal hernia right PAST SURGICAL HISTORY Procedure Laterality Date - OPEN FIXATN PROX END/NECK FEMUR FX 1985 ORIF femur - REPAIR ING HERNIA,5+Y/O,REDUCIBL 2004 Hernia repair, inguinal - left - REPAIR ING HERNIA,5+Y/O,REDUCIBL Right ALLERGIES Patient has no known allergies. MEDICATIONS cholecalciferol, vitamin D3, (VITAMIN D3 ORAL) Take by mouth. LANSOPRAZOLE (PREVACID ORAL) Take by mouth. ESCITALOPRAM OXALATE (LEXAPRO ORAL) Take by mouth. benzonatate (TESSALON PERLE) 100 mg capsule Take 1 capsule by mouth three times daily as needed. FAMILY HISTORY Problem Relation Age of Onset - Diabetes Mother - Hypertension Mother - Hypertension Father - Heart Father CHF - COPD Father smoker Social History Tobacco Use - Smoking status: Never Smoker - Smokeless tobacco: Never Used Substance Use Topics - Alcohol use: Yes Alcohol/week: 6.0 oz Types: 4 Cans of Beer (12oz) per week - Drug use: No Objective Physical Exam Constitutional: He is well-developed, well-nourished, and in no distress. HENT: Right Ear: Tympanic membrane, external ear and ear canal normal. Left Ear: Tympanic membrane, external ear and ear canal normal. Nose: Nose normal. No rhinorrhea. Eyes: Pupils are equal, round, and reactive to light. EOM are normal. Left eye exhibits hordeolum. Left eye exhibits no discharge and no exudate. Left conjunctiva is not injected. Cardiovascular: Normal rate, regular rhythm and normal heart sounds. Pulmonary/Chest: Effort normal and breath sounds normal. No respiratory distress. He has no wheezes. He has no rales. Neurological: He is alert. Skin: Skin is warm and dry. No rash noted. Nursing note and vitals reviewed. ASSESSMENT/PLAN: 1. Hordeolum externum of left upper eyelid - ICD9: 373.11, ICD10: H00.014 - BACITRACIN 500 UNIT/GRAM EYE OINTMENT - Follow-up with your PCP in 3-5 days if symptoms have not improved or sooner if symptoms worsen - Discussed red flags and need for immediate medical evaluation if any occur. - Discussed supportive care treatment with fluids, rest and analgesia. - Discussed expected course of illness MATTY Curiel APRN.CNP 02/07/2019 12:27 PM Signed ASSESSMENT/PLAN: 1. Hordeolum externum of left upper eyelid - ICD9: 373.11, ICD10: H00.014 - BACITRACIN 500 UNIT/GRAM EYE OINTMENT - Follow-up with your PCP in 3-5 days if symptoms have not improved or sooner if symptoms worsen - Discussed red flags and need for immediate medical evaluation if any occur. - Discussed supportive care treatment with fluids, rest and analgesia. - Discussed expected course of illness Michelle Brown APRN.CNP STY: You have a sty, an infection of one of the tiny glands located on the eyelid. A sty takes several days to develop. It usually forms a small abscess along the edge of the eyelid. The pus that forms in the infected gland must drain for the sty to heal. A sty is treated by applying warm moist compresses to the eye for 15 minutes three times daily until it drains and the swelling and redness are gone. Some sties require surgical drainage. Antibiotic eye drops may be needed if the infection spreads to other areas of the eye. Please see your doctor if your eye is not better after 3 days of treatment. Return immediately of see your doctor for any fever or loss of vision. Referring Provider: SELF [200] Allergies As of Date: 02/07/2019 (No Known Allergies) Date Reviewed: 02/07/2019 Reviewed by: Michelle (Sri Brown - Fully Assessed Reason for Visit: Red Eye Left Eye [2910] Cmt: woke up with symptoms this am Primary Visit Diagnosis:Hordeolum externum of left upper eyelid [H00.014] Order(s):bacitracin ophthalmic ophthalmic ointmentUse 1 application in the left eye three times daily for 5 days.Disp: 1 TubeRfl: 0 Prescriptions as of 02/07/2019 Sig: VITAMIN D3 ORAL Take by mouth. PREVACID ORAL Take by mouth. LEXAPRO ORAL Take by mouth. 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 Hordeolum externum of left upper eyelid - ICD9: 373.11, ICD10: H00.014 - BACITRACIN 500 UNIT/GRAM EYE OINTMENT - Follow-up with your PCP in 3-5 days if symptoms have not improved or sooner if symptoms worsen - Discussed red flags and need for immediate medical evaluation if any occur. - Discussed supportive care treatment with fluids, rest and analgesia. - Discussed expected course of illness Michelle Brown APRN.KANDICE STY: You have a sty, an infection of one of the tiny glands located on the eyelid. A sty takes several days to develop. It usually forms a small abscess along the edge of the eyelid. The pus that forms in the infected gland must drain for the sty to heal. A sty is treated by applying warm moist compresses to the eye for 15 minutes three times daily until it drains and the swelling and redness are gone. Some sties require surgical drainage. Antibiotic eye drops may be needed if the infection spreads to other areas of the eye. Please see your doctor if your eye is not better after 3 days of treatment. Return immediately of see your doctor for any fever or loss of vision. Prescriptions ordered this encounter Disp Refills Start End BACITRACIN 500 UNIT/GRAM EYE OINTMENT 1 Tu* 0 02/07/2019 02/12/2019 Route: LEFT EYE Sig: Use 1 application in the left eye three times daily for 5 days. Encounter Status:Closed by MICHELLE BROWN on 02/07/[address] [facility] PROGRESSon 02-07-2019 PROGRESS HNO ID: [id number] Author: Michelle Brown Service: ? Author Type: Nurse Practitioner Type: Progress Notes Filed: 02/07/2019 1:43 PM Note Text: Subjective HPI Korey Boogie is a 38 year old male who presents with left eye drainage and eye lid swollen. He had some crusting on the eye this morning. He states the eye itches. Review of Systems Constitutional: Negative. Negative for fever. HENT: Negative for congestion and sore throat. Eyes: Positive for discharge. Respiratory: Negative. Negative for cough. BP 138/84 Pulse 67 Temp 37.6 ?C (99.6 ?F) (Tympanic) Resp 14 Wt (!) 157.7 kg (347 lb 9.6 oz) PAST MEDICAL HISTORY Diagnosis Date - Inguinal hernia left - Inguinal hernia right PAST SURGICAL HISTORY Procedure Laterality Date - OPEN FIXATN PROX END/NECK FEMUR FX 1985 ORIF femur - REPAIR ING HERNIA,5+Y/O,REDUCIBL 2004 Hernia repair, inguinal - left - REPAIR ING HERNIA,5+Y/O,REDUCIBL Right ALLERGIES Patient has no known allergies. MEDICATIONS cholecalciferol, vitamin D3, (VITAMIN D3 ORAL) Take by mouth. LANSOPRAZOLE (PREVACID ORAL) Take by mouth. ESCITALOPRAM OXALATE (LEXAPRO ORAL) Take by mouth. benzonatate (TESSALON PERLE) 100 mg capsule Take 1 capsule by mouth three times daily as needed. FAMILY HISTORY Problem Relation Age of Onset - Diabetes Mother - Hypertension Mother - Hypertension Father - Heart Father CHF - COPD Father smoker Social History Tobacco Use - Smoking status: Never Smoker - Smokeless tobacco: Never Used Substance Use Topics - Alcohol use: Yes Alcohol/week: 6.0 oz Types: 4 Cans of Beer (12oz) per week - Drug use: No Objective Physical Exam Constitutional: He is well-developed, well-nourished, and in no distress. HENT: Right Ear: Tympanic membrane, external ear and ear canal normal. Left Ear: Tympanic membrane, external ear and ear canal normal. Nose: Nose normal. No rhinorrhea. Eyes: Pupils are equal, round, and reactive to light. EOM are normal. Left eye exhibits hordeolum. Left eye exhibits no discharge and no exudate. Left conjunctiva is not injected. Cardiovascular: Normal rate, regular rhythm and normal heart sounds. Pulmonary/Chest: Effort normal and breath sounds normal. No respiratory distress. He has no wheezes. He has no rales. Neurological: He is alert. Skin: Skin is warm and dry. No rash noted. Nursing note and vitals reviewed. ASSESSMENT/PLAN: 1. Hordeolum externum of left upper eyelid - ICD9: 373.11, ICD10: H00.014 - BACITRACIN 500 UNIT/GRAM EYE OINTMENT - Follow-up with your PCP in 3-5 days if symptoms have not improved or sooner if symptoms worsen - Discussed red flags and need for immediate medical evaluation if any occur. - Discussed supportive care treatment with fluids, rest and analgesia. - Discussed expected course of illness Michelle Brown APRN.SCRIPT SUPERVISOR [facility] Encounters Encounter Date Encounter Type Care Provider Facility Start: 08-20-2024 End: 08-20-2024 ambulatory [facility] Facility:[facility] Start: 09-08-2022 End: 09-08-2022 ambulatory [facility] Work Phone: Start: 09-08-2022 End: 09-08-2022 Patient encounter procedure [facility] Start: 04-30-2022 End: 04-30-2022 Patient encounter procedure [facility], [facility] Payers Date Payer Category Payer Private Health Insurance [id number] 2024 Self-pay [id number] 2017 Unknown [id number] Unknown [id number] Social History Date Type Detail Facility Start: 01-05-2016 End: 01-05-2016 Tobacco smoking status NHIS Unknown if ever smoked [facility] Work Phone: Start: 1980 Sex Assigned At Male [facility] Work Phone: Evaluation note Note Date & Type Note Facility Evaluation note No assessment information availa ble [facility] Work Phone: Summary Purpose Family History No Family History Records FoundNo Family History Records Found Advance Directives No Advanced Directives Records FoundNo Advanced Directives Records Found Chief Complaint and Reason for Visit Chief Complaint INT LABS Additional Source Comments (unrecognized sect ion and content) No Status Records FoundNo Status Records Found INFORMATION SOURCE (unrecogn ized section and content) DATE CREATED AUTHOR 05/13/2019 [facility] DATE CREATED AUTHOR AUTHOR'S ABBY BOWEN 09/13/2024 [facility] Goals (unrecognized section and content) Goals may be documented in a n alternate sectionGoals may be documented in an alternate section FOR RECORDS PERTAINING TO PATIENTS WHO ARE OR HAVE BEEN ENROLLED IN A CHEMICAL DEPENDENCY/SUBSTANCEABUSE PROGRAM, SOME INFORMATION MAY BE OMITTED. This clinical summary was aggregated from multiple sources. Caution should be exercised in using it in the provision of clinical care. This summary normalizes information from multiple sources, and as a consequence, information in this document may materially change the coding, format and clinical context of patient data. In addition, data may be omitted in some cases. CLINICAL DECISIONS SHOULD BE BASED ON THE PRIMARY CLINICAL RECORDS. [facility] [employer] provides no warranty or guarantee of the accuracy or completeness of information in this document.
[2025-08-19 09:22] LABS: AST(SGOT) 24 U/L (<=37); Alanine Aminotransfer ALT/SGPT 30 U/L (<=46); Albumin, Serum 4.4 g/dL (3.5-5.0); Alkaline Phosphatase 57 U/L (40-129); Anion Gap 11 (5-15); BUN 17 mg/dL (4-19); BUN/Creat Ratio 19.4 RATIO (10-20); Calcium,Total 9.8 mg/dL (7.6-11.0); Carbon Dioxide 25.6 mmol/L (21.0-32.0); Chloride 104 mmol/L (98-108); Cholesterol 178 mg/dL (<=200); Globulin 3.0 g/dL (2.2-4.2); Glucose 105 mg/dL (70-99); Low Density Lipoprotein Calc. 110 mg/dL; Potassium 4.1 mmol/L (3.3-5.1); Triglycerides 101 mg/dL; Very Low Density Lipoprotein 20 mg/dL (5-40); Vitamin D,25 Hydroxy 27.1 ng/mL (30-100); cholesterol:hdl ratio screen 3.55
== END | disposition home or self-care (01) ==
LOC: LAB 06:58
PROVIDERS: PCP Family Medicine; Referring Provider Family Medicine; Visit Provider Family Medicine
DX: E11.9 Type 2 diabetes mellitus without complications (principal)
CPT/HCPCS: 36415; 80053; 80061; 82306; 84403; 84443

== ENCOUNTER → 2025-09-07 | Outpatient (CLI) | payer BC, SELFPAY | END | disposition home or self-care (01) | LOC: MFPLAB 15:20 | PROVIDERS: PCP Family Medicine; Visit Provider Family Medicine | DX: E11.9 Type 2 diabetes mellitus without complications (principal) | CPT/HCPCS: 36415; 83036 ==